=== PATIENT | male | born 2000 | race Caucasian/White ===

== ENCOUNTER 2022-01-18 11:41 | Emergency (ER) | payer OTHER, MEDICAID, SELFPAY ==
[2022-01-18] VITALS (15 sets, daily range): BP systolic 120–141; BP diastolic 70–83; PULSE 51–73; RESP 11–18; TEMP 36.6; O2SAT 94–100
--- NOTE | ~2022-01-18 | XR_ITS ---
EXAMINATION: XR chest 2V 01/18/2022 12:18 INDICATION: Chest pain PROCEDURE: 2 view chest COMPARISON: No prior studies for comparison. FINDINGS: The lungs are clear. The cardiomediastinal silhouette is within normal limits. There are no pleural effusions. There is no pneumothorax suspected. IMPRESSION: 1: NO ACUTE CARDIOPULMONARY DISEASE. Reviewed, dictated and finalized at location A.
--- NOTE | 2022-01-18 11:45 | ECG_ITS ---
Measurements Intervals [place] Rate: 70 P: 17 WI: 180 QRS: 45 QRSD: 112 T: 5 QT: 361 QTc: 390 Interpretive Statements SINUS RHYTHM MODERATE INTRAVENTRICULAR CONDUCTION DELAY [110+ ms QRS DURATION] ST ELEVATION, PROBABLY EARLY REPOLARIZATION [ST ELEVATION WITH NORMALLY INFLECTED T WAVE] BORDERLINE ECG NO PREVIOUS ECG AVAILABLE FOR COMPARISON Electronically Signed On 01-18-2022 16:11:05 CDT by Horace Barnett M.D.
--- NOTE | 2022-01-18 12:04 | ED.CHESTPAIN ---
HPI - Chest Pain General Chief Complaint: Chest Pain Stated Complaint: chest pain 03/06 substernal Time Seen by Provider: 01/18/22 11:50 History of Present Illness HPI narrative: 21-year-old male history of GERD and evaluation of midsternal chest pain. Patient states the pain has been present intermittently for over a year, and is worse with heavy activity. Patient states that he was at work today when he began to experience severe chest discomfort. Patient states the pain is worse when he is active, breathing deeply, and pushing on his chest. Patient denies any shortness of breath, difficulty breathing, nausea or vomiting, or fever. Denies any injury or trauma. Related Data Allergies Allergy/AdvReac Type Severity Reaction Status Date / Time No Known Allergies Allergy Verified 01/18/22 11:42 Review of Systems Review of Systems: CONSTITUTIONAL: Denies fever, chills, or sweats. EYES: Denies visual changes, redness, or discharge. ENT: Denies rhinorrhea, congestion, sore throat, or otalgia. CARDIOVASCULAR: Reports chest pain RESPIRATORY: Denies cough or dyspnea. GASTROINTESTINAL: Denies abdominal pain, nausea, vomiting, or diarrhea. GENITOURINARY: Denies dysuria or hematuria. SKIN: Denies rash or itching. MUSCULOSKELETAL: Denies back pain, joint pain, or myalgia. NEUROLOGIC: Denies headache, numbness, dizziness, or weakness. PSYCHIATRIC: Denies anxiety or depression. Exam Narrative: GENERAL: Well-appearing, well-nourished, no physical limitations, and in mild acute distress. HEAD: Normocephalic, atraumatic. EYES: Conjunctivae normal, PERRLA and EOMI. CHEST: Clear to auscultation. No respiratory distress. No wheezes rales or rhonchi. Midsternal tenderness when pressure is applied HEART: Regular rate and rhythm. No murmur heard. Normal peripheral pulses. ABDOMEN: Soft, nontender, nondistended, normal active bowel sounds. EXTREMITIES: Normal range of motion. No edema. No clubbing or cyanosis SKIN: Warm, dry, no rash. No noted wounds NEURO: No focal deficits. Alert and oriented x3. MAEW. CN's II-XI intact bilaterally, normal gait PSYCH: Cooperative. Normal mood and affect. Course Vital Signs Vital signs: Vital Signs Temperature 36.6 C 01/18/22 11:37 Pulse Rate 73 01/18/22 11:37 Respiratory Rate 14 01/18/22 11:37 Blood Pressure 141/79 H 01/18/22 11:37 Pulse Oximetry 100 01/18/22 11:37 Oxygen Delivery Room Air 01/18/22 11:37 Temperature 36.6 C 01/18/22 11:37 Pulse Rate 73 01/18/22 11:37 Respiratory Rate 14 01/18/22 11:37 Blood Pressure 141/79 H 01/18/22 11:37 Pulse Oximetry 100 01/18/22 11:37 Oxygen Delivery Room Air 01/18/22 11:37 MDM - Chest Pain MDM Narrative Medical decision making narrative: 21-year-old male with a history of costochondritis presented to the emergency room complaints of midsternal chest pain. No evidence of volume overload. EKG shows no signs of active ischemia. Single troponin was negative. Presentation is not consistent with an acute PE. Chest x-ray shows no evidence of a pneumo or pneumonia. Heart score is a 0 will discharge patient home with steroids and follow-up with primary care. Lab Data Result diagrams: 01/18/22 12:09 01/18/22 12:08 Labs: Lab Results 01/18/22 01/18/22 01/18/22 Range/Units 12:08 12:08 12:09 WBC 7.2 (4.5-10.0) K/mm3 RBC 4.87 (4.6-6.20) M/mm3 Hgb 14.5 (14.0-18.0) g/dL Hct 42.6 (42.0-52.0) % MCV 87.5 (80-100) fl MCH 29.8 (26-34) pg MCHC 34.0 (32-36) g/dl RDW 12.5 (11.5-14.5) % Plt Count 323 (150-375) k/mm3 MPV 9.0 (7.4-10.4) fl Immature Gran % (Auto) 0.3 (0-0.5) % Neut % (Auto) 70.5 (45.5-73.1) % Lymph % (Auto) 21.3 (18.3-44.2) % [place] % (Auto) 7.2 (2.6-8.5) % Eos % (Auto) 0.4 (0-4.4) % Baso % (Auto) 0.3 (0.2-1.2) % Lymph # (Auto) 1.54 (0.9-3.2) K/mm3 [place] # (Auto) 0.5 (0.1-0.6) K/mm3 Eos # (Auto)
[2022-01-18] MEDS: KETOROLAC 30 MG/ML VIAL (*BKC) IV PUSH (12:30)
[2022-01-18 12:53] LABS: Basophils Percent Auto 0.3 % (0.2-1.2); Eosinophils Percent Auto 0.4 % (0-4.4); Hematocrit 42.6 % (42.0-52.0); Hemoglobin 14.5 g/dL (14.0-18.0); Immature Granulocyte Absolute 0.02 K/mm3 (0.00-0.031); Immature Granulocyte Percent A 0.3 % (0-0.5); Lymphocytes Absolute Auto 1.54 K/mm3 (0.9-3.2); Lymphocytes Percent Auto 21.3 % (18.3-44.2); Mean Corpuscular Hemoglobin 29.8 pg (26-34); Mean Corpuscular Volume 87.5 fl (80-100); Monocytes Absolute Auto 0.5 K/mm3 (0.1-0.6); Monocytes Percent Auto 7.2 % (2.6-8.5); Neutrophils Absolute Auto 5.1 K/mm3 (1.3-6.7); Neutrophils Percent Auto 70.5 % (45.5-73.1); Platelet Count Result 323 k/mm3 (150-375); Red Blood Count 4.87 M/mm3 (4.6-6.20); Red Cell Distribution Width 12.5 % (11.5-14.5); White Blood Count 7.2 K/mm3 (4.5-10.0)
[2022-01-18 13:04] LABS: INR 1.1; Partial Thromboplastin Time 30.3 SECONDS (22.3-36.8); Prothrombin Time 14.2 Seconds (11.1-14.7)
[2022-01-18 13:05] LABS: Alanine Aminotransferase 49 U/L (6-50); Albumin Level 4.8 g/dL (3.5-5.1); Alkaline Phosphatase 79 U/L (38-126); Anion Gap 12 mmol/L (8-16); Aspartate Amino Transferase 41 U/L (17-59); Bilirubin,Total 0.9 mg/dL (0.2-1.3); Blood Urea Nitrogen 12 mg/dL (9-20); Calcium 9.4 mg/dL (8.4-10.2); Carbon Dioxide 26 mmol/L (22-30); Chloride 101 mmol/L (98-107); Estimated CRCL calculation 126 ml/min; Estimated Glomerular Filt Rate > 60; Glucose 93 mg/dL (65-110); Lipase 75 U/L (23-300); Potassium 3.2 mmol/L (3.4-5.0); Sodium 139 mmol/L (137-145)
[2022-01-18 13:14] LABS: Troponin I < 0.012 ng/mL (0.000-0.034)
== END 2022-01-18 14:06 | disposition home or self-care (01) ==
PROVIDERS: Preventive Medicine Aerospace Medicine; Emergency Provider Nurse Practitioner Family
DX: M94.0 Chondrocostal junction syndrome [Tietze] (principal); R94.31 Abnormal electrocardiogram [ECG] [EKG]
CPT/HCPCS: 36415; 71046; 80053; 83690; 84484; 85025; 85610; 85730; 93005; 96374; 96375; 99284; J1100; J1885

== ENCOUNTER 2023-03-04 19:10 | Emergency (ER) | payer OTHER, MEDICAID, SELFPAY ==
[2023-03-04] VITALS (8 sets, daily range): BP systolic 127–139; BP diastolic 80–87; PULSE 73–98; RESP 12–20; TEMP 37.3; O2SAT 100
--- NOTE | ~2023-03-04 | CT_ITS ---
EXAMINATION: CTA chest PE protocol DATE: 03/04/2023 20:31 INDICATION: chest pain TECHNIQUE: Computed tomography angiography (CTA) of the chest was performed with 200 mL Omnipaque-350 intravenous contrast timed to evaluate the pulmonary arteries. Repeat imaging acquired due to subopt imal arterial enhancement. Coronal maximum intensity projection 3D-reconstructions were created by lashell rmaey technologist. The dose-length product (DLP) was 614.02 mGy-cm. Automated exposure control and itera tive reconstruction technique were employed. COMPARISON: None. FINDINGS: Lung parenchyma and airways: Mild motion artifact. No acute opacity. Pleura: Unremarkable. Thoracic inlet, axillae and chest wall: Bilateral symmetric gynecomastia. Thoracic aorta: Normal. Mediastinum: Normal. Heart and pericardium: Normal. Coronary artery calcifications: Absent. Upper abdomen: No significant finding. Bones: No acute osseous finding. Pulmonary arteries: Study quality: Suboptimal arterial enhancement which persisted in repeated attemp ts. Subsegmental arteries poorly visualized due to cardiac/respiratory motion and beam hardening. Non occlusive segmental or occlusive/nonocclusive subsegmental emboli could be missed. No central or occl usive segmental pulmonary emboli detected. IMPRESSION: Mildly limited study as detailed above. No CT evidence of central or occlusive segmental acute pulmon bertin embolus. No acute intrathoracic process detected. Bilateral symmetric gynecomastia. Reviewed, dictated and finalized at location K. IMPRESSION: Mildly limited study as detailed above. No CT evidence of central or occlusive segmental acute pulmonary embolus. No acute intrathoracic process detected. Bilateral symmetric gynecomastia.
--- NOTE | ~2023-03-04 | XR_ITS ---
EXAMINATION: XR chest 1V portable Exam Date/Time: 03/04/2023 19:25 CDT HISTORY: chest wall pain INTERMITTENTLY X 3 YEARS Comparison: 01/18/2022. RESULT: Lines, tubes, and devices: None. Lungs and pleura: Clear. Cardiomediastinal silhouette: Stable. Other: No acute osseous or upper abdominal finding. IMPRESSION: No acute cardiopulmonary process. Reviewed, dictated and finalized at location K.
--- NOTE | 2023-03-04 19:10 | ECG_ITS ---
Measurements Intervals [place] Rate: 95 P: 45 VA: 200 QRS: 62 QRSD: 107 T: 11 QT: 318 QTc: 401 Interpretive Statements SINUS RHYTHM ST ELEVATION CONSISTENT WITH INJURY, PERICARDITIS, OR EARLY REPOLARIZATION [ST ELEVATION W/O NORMALLY INFLECTED T WAVE] ABNORMAL ECG COMPARED TO ECG 01/18/2022 11:57:18 NO SIGNIFICANT CHANGES Electronically Signed On 03-05-2023 9:28:54 CDT by Donnell Pena M.D.
[2023-03-04] MEDS: KETOROLAC 15 MG/ML VIAL (*BKC) IV PUSH (19:23)
--- NOTE | 2023-03-04 19:23 | ED.GENADULT ---
HPI - General Adult General Chief complaint: Chest Pain Stated complaint: cp History of Present Illness HPI narrative: 22-year-old male with no significant past medical history presented to the emergency department for evaluation of chest pain that he describes as substernal that started approximately 530. Patient denies any recent coughs colds or fevers. Patient states he has no prior cardiac history but does have a potential history of costochondritis. Patient denies any falls or injuries. Related Data Allergies Allergy/AdvReac Type Severity Reaction Status Date / Time No Known Allergies Allergy Verified 01/18/22 11:42 Review of Systems Review of Systems: All systems reviewed & are unremarkable except as noted in HPI and below Exam Narrative: APPEARANCE: Well appearing, no pain, no distress, well-nourished. HEAD: normocephalic, atraumatic. EYES: PERRLA/EOMI, conjunctivae clear. NOSE: Normal no drainage NECK: Supple. No adenopathy, no masses. RESPIRATORY: Airway patent, respirations nonlabored. Clear to auscultation bilaterally, no rales, rhonchi, wheezing. CARDIOVASCULAR: Regular rate and rhythm without murmurs rubs or gallops. ABDOMINAL: Soft, nontender, nondistended, normal bowel sounds MUSCULOSKELETAL: Reproducible chest wall tenderness to palpation NEURO: Alert. Cranial nerves II through XII intact. Good gait. Good coordination SKIN: Warm, dry. Normal Color Course Course Emergency Course: 22-year-old male presented to the emergency department for evaluation of reproducible sternal chest pain. Patient reports he does have a history of costochondritis. EKG showed early repole. Patient had negative serial troponins. Patient had no elevated leukocytosis and a stable hemoglobin. No significant abnormalities on his CMP. CTA was negative for pulm embolism. Patient does feel improved with treatment. Patient was encouraged to have close follow-up with his primary care physician for additional outpatient cardiac testing. All questions concerns were addressed. Vital Signs Vital signs: Vital Signs Temperature 99.1 F 03/04/23 18:57 Pulse Rate 98 03/04/23 18:57 Respiratory Rate 17 03/04/23 18:57 Blood Pressure 139/87 03/04/23 18:57 Pulse Oximetry 100 03/04/23 18:57 Oxygen Delivery Room Air 03/04/23 18:57 Temperature 99.1 F 03/04/23 18:57 Pulse Rate 77 03/04/23 23:31 Respiratory Rate 12 03/04/23 23:31 Blood Pressure 137/82 03/04/23 23:31 Pulse Oximetry 100 03/04/23 23:31 Oxygen Delivery Room Air 03/04/23 18:57 Medical Decision Making Differential Diagnosis Differential Diagnosis: Pneumonia, pneumothorax, pleurisy, costochondritis, pulmonary embolism, ACS Vital Signs Vital Signs: Vital Signs Temperature 99.1 F 03/04/23 18:57 Pulse Rate 98 03/04/23 18:57 Respiratory Rate 17 03/04/23 18:57 Blood Pressure 139/87 03/04/23 18:57 Pulse Oximetry 100 03/04/23 18:57 Oxygen Delivery Room Air 03/04/23 18:57 Temperature 99.1 F 03/04/23 18:57 Pulse Rate 77 03/04/23 23:31 Respiratory Rate 12 03/04/23 23:31 Blood Pressure 137/82 03/04/23 23:31 Pulse Oximetry 100 03/04/23 23:31 Oxygen Delivery Room Air 03/04/23 18:57 Lab Data Lab results reviewed: Yes I reviewed the patient's lab results. 03/04/23 19:23 03/04/23 19:23 Labs: Lab Results 03/04/23 03/04/23 03/04/23 Range/Units 19:23 19:23 19:46 WBC 5.9 (4.5-10.0) K/mm3 RBC 4.70 (4.6-6.20) M/mm3 Hgb 14.0 (14.0-18.0) g/dL Hct 41.8 L (42.0-52.0) % MCV 88.9 (80-100) fl MCH 29.8 (26-34) pg MCHC 33.5 (32-36) g/dl RDW 12.1 (11.5-14.5) % Plt Count 262 (150-375) k/mm3 MPV 8.8 (7.4-10.4) fl Immature Gran % (Auto) 0.2 (0-0.5) % Neut % (Auto) 69.9 (45.5-73.1) % Lymph % (Auto) 19.9 (18.3-44.2) % [place] % (Auto) 9.4 H (2.6-8.5) % Eos % (Auto) 0.3 (0-4.4) % Baso % (Auto) 0.3
[2023-03-04 19:28] LABS: Basophils Percent Auto 0.3 % (0.2-1.2); Eosinophils Percent Auto 0.3 % (0-4.4); Hematocrit 41.8 % (42.0-52.0); Immature Granulocyte Absolute 0.01 K/mm3 (0.00-0.031); Immature Granulocyte Percent A 0.2 % (0-0.5); Lymphocytes Absolute Auto 1.17 K/mm3 (0.9-3.2); Lymphocytes Percent Auto 19.9 % (18.3-44.2); Mean Corpuscular HGB Conc 33.5 g/dl (32-36); Mean Corpuscular Hemoglobin 29.8 pg (26-34); Mean Corpuscular Volume 88.9 fl (80-100); Mean Platelet Volume 8.8 fl (7.4-10.4); Monocytes Absolute Auto 0.6 K/mm3 (0.1-0.6); Monocytes Percent Auto 9.4 % (2.6-8.5); Neutrophils Absolute Auto 4.1 K/mm3 (1.3-6.7); Neutrophils Percent Auto 69.9 % (45.5-73.1); Platelet Count Result 262 k/mm3 (150-375); Red Cell Distribution Width 12.1 % (11.5-14.5); White Blood Count 5.9 K/mm3 (4.5-10.0)
[2023-03-04 19:41] LABS: Alanine Aminotransferase 20 U/L (6-50); Albumin Level 4.6 g/dL (3.5-5.1); Alkaline Phosphatase 62 U/L (38-126); Anion Gap 10 mmol/L (8-16); Aspartate Amino Transferase 24 U/L (17-59); Bilirubin,Total 1.3 mg/dL (0.2-1.3); Blood Urea Nitrogen 12 mg/dL (9-20); Carbon Dioxide 23 mmol/L (22-30); Chloride 107 mmol/L (98-107); Estimated Glomerular Filt Rate > 60; Glucose 93 mg/dL (65-110); INR 1.2; Potassium 3.5 mmol/L (3.4-5.0); Prothrombin Time 15.3 Seconds (11.1-14.7); Sodium 140 mmol/L (137-145)
[2023-03-04 19:43] LABS: Partial Thromboplastin Time 30.8 SECONDS (22.3-36.8)
[2023-03-04 19:52] LABS: Appearance Urine Clear (Clear); Bilirubin Urine Negative (Negative); Blood Urine Negative (Negative); Color Urine Yellow (Yellow); Glucose Urine UA Negative (Negative); Ketones Urine Negative (Negative); Leukocyte Esterase Ur Negative LEU/UL (Negative); Nitrate Urine Negative (Negative); Protein Urine Negative (Negative); Specific Grav Ur 1.015 (1.001-1.035); Urobilinogen Urine 0.2 mg/dL (<2.0); pH Urine 7.5 (5.0-9.0)
[2023-03-04 19:53] LABS: Add Urine Microscopic? NO
[2023-03-04 19:55] LABS: Troponin I < 0.012 ng/mL (0.000-0.034)
[2023-03-04 20:06] LABS: Amphetamine Screen Urine Negative (Negative); Barbiturate Screen Urine Negative (Negative); Benzodiazepines Screen Urine Negative (Negative); Cannabinoid Screen Urine Negative (Negative); Cocaine Screen Urine Negative (Negative); Methadone Screen Urine Negative (Negative); Opiate Screen Urine Negative (Negative); Phencyclidine Screen Urine Negative (Negative)
[2023-03-04 20:10] LABS: Lactic Acid Reflex 1.6 mmol/L (0.7-2.0)
[2023-03-04] MEDS: HYDROmorphone HCL INJ (*CRX) 1 MG/ML SYR 0.5 MG IV PUSH (22:27)
[2023-03-04 23:10] LABS: Troponin I < 0.012 ng/mL (0.000-0.034)
--- NOTE | 2023-03-04 23:16 | PC.NURSE ---
Report given to MOHAMUD Lozano, no questions/concerns. Care of pt transferred.
== END 2023-03-05 | disposition home or self-care (01) ==
PROVIDERS: Emergency Provider Emergency Medicine; PCP Internal Medicine
DX: M94.0 Chondrocostal junction syndrome [Tietze] (principal); R07.89 Other chest pain
CPT/HCPCS: 36415; 71045; 71275; 80053; 80307; 81003; 83605; 84484; 85025; 85610; 85730; 93005; 96374; 96375; 99284; J1170; J1885; Q9967

== ENCOUNTER 2023-07-04 21:29 | Emergency (ER) | payer OTHER, SELFPAY ==
--- NOTE | ~2023-07-04 | XR_ITS ---
EXAMINATION: XR chest 2V DATE: 07/04/2023 22:04 INDICATION: Chest pain. TECHNIQUE: Frontal and lateral views of the chest were obtained. COMPARISON: Chest view 03/04/2023, chest CT 03/04/2023 FINDINGS: There is no pneumonia, pleural effusion, or pneumothorax. The heart size is normal. IMPRESSION: 1. No acute cardiopulmonary disease. Reviewed, dictated and finalized at location E. [employer]
[2023-07-04 21:30] VITALS: BP 127/85; PULSE 77; RESP 15; TEMP 36.3; O2SAT 100
--- NOTE | 2023-07-04 21:30 | ECG_ITS ---
Measurements Intervals [place] Rate: 77 P: 32 MD: 156 QRS: 65 QRSD: 103 T: 35 QT: 330 QTc: 376 Interpretive Statements SINUS RHYTHM WITH SINUS ARRHYTHMIA ST ELEVATION, PROBABLY EARLY REPOLARIZATION [ST ELEVATION WITH NORMALLY INFLECTED T WAVE] COMPARED TO ECG 03/04/2023 19:12:37 SINUS ARRHYTHMIA NOW PRESENT Electronically Signed On 07-05-2023 11:14:30 [employer]KER by Maximiliano Jose M.D.
[2023-07-04 21:51] LABS: Basophils Percent Auto 0.4 % (0.2-1.2); Eosinophils Percent Auto 0.3 % (0-4.4); Hemoglobin 14.8 g/dL (14.0-18.0); Immature Granulocyte Absolute 0.01 K/mm3 (0.00-0.031); Immature Granulocyte Percent A 0.1 % (0-0.5); Lymphocytes Percent Auto 16.6 % (18.3-44.2); Mean Corpuscular HGB Conc 33.6 g/dl (32-36); Mean Corpuscular Hemoglobin 29.7 pg (26-34); Mean Corpuscular Volume 88.2 fl (80-100); Mean Platelet Volume 8.8 fl (7.4-10.4); Monocytes Absolute Auto 0.4 K/mm3 (0.1-0.6); Monocytes Percent Auto 5.5 % (2.6-8.5); Neutrophils Absolute Auto 5.6 K/mm3 (1.3-6.7); Neutrophils Percent Auto 77.1 % (45.5-73.1); Platelet Count Result 285 k/mm3 (150-375); Red Blood Count 4.99 M/mm3 (4.6-6.20); White Blood Count 7.2 K/mm3 (4.5-10.0)
[2023-07-04 22:00] LABS: INR 1.1; Prothrombin Time 14.6 Seconds (11.1-14.7)
[2023-07-04 22:02] LABS: Partial Thromboplastin Time 28.5 SECONDS (22.3-36.8)
[2023-07-04 22:30] LABS: Alanine Aminotransferase 26 U/L (6-50); Albumin Level 4.6 g/dL (3.5-5.1); Alkaline Phosphatase 71 U/L (38-126); Anion Gap 9 mmol/L (8-16); Aspartate Amino Transferase 29 U/L (17-59); Bilirubin,Total 1.8 mg/dL (0.2-1.3); Blood Urea Nitrogen 10 mg/dL (9-20); Calcium 9.8 mg/dL (8.4-10.2); Carbon Dioxide 27 mmol/L (22-30); Chloride 104 mmol/L (98-107); Estimated CRCL calculation 124 ml/min; Estimated Glomerular Filt Rate > 60; Glucose 97 mg/dL (65-110); Lipase 68 U/L (23-300); Potassium 3.5 mmol/L (3.4-5.0); Sodium 140 mmol/L (137-145)
[2023-07-04 22:41] LABS: Troponin I < 0.012 ng/mL (0.000-0.034)
[2023-07-04 23:13] VITALS: BP 111/83; PULSE 61; RESP 12; TEMP 36.8; O2SAT 100
--- NOTE | 2023-07-04 23:31 | PC.NURSE ---
per zhen larsen, ok to not give aspirin
[2023-07-05 01:25] LABS: Troponin I < 0.012 ng/mL (0.000-0.034)
--- NOTE | 2023-07-05 01:30 | ED.CHESTPAIN ---
HPI - Chest Pain General Chief Complaint: Chest Pain Stated Complaint: chest pain with previous diagnosis Time Seen by Provider: 07/04/23 23:22 Source: patient and old records reviewed Mode of arrival: ambulatory Limitations: no limitations History of Present Illness HPI narrative: Patient is a 23-year-old male who presents the ED with report of chest pain. Patient reports he has been dealing with intermittent chest pain for the last 4 years. States pain is midsternal and radiates across his stress bilaterally. States pain flared up around 8:30 p.m. 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 Pain worse with movement now. Patient has not tried taking anything for pain, but states ibuprofen has helped in the past. Reports previous dx of costochondritis. He denies any difficulty breathing. Denies feeling short of breath. Denies abdominal pain, nausea, vomiting, dizziness, lightheadedness, lower extremity pain or swelling. Patient has been seen in our ED for similar CP several times with reassuring w/u's. Related Data Allergies Allergy/AdvReac Type Severity Reaction Status Date / Time No Known Allergies Allergy Verified 01/18/22 11:42 Review of Systems Review of Systems: CONSTITUTIONAL: Denies fever, chills, or sweats. CARDIOVASCULAR: See HPI. RESPIRATORY: Denies cough or dyspnea. GASTROINTESTINAL: Denies abdominal pain, nausea, vomiting. MUSCULOSKELETAL: Denies back pain. NEUROLOGIC: Denies headache, dizziness, numbness, or weakness. All systems reviewed & are unremarkable except as noted in HPI and below Exam Narrative: GENERAL: Well appearing, well-nourished, non-toxic, in no acute distress. HEAD: Normocephalic, atraumatic. RESPIRATORY: Airway patent, respirations nonlabored. Clear to auscultation bilaterally, no rales, rhonchi, wheezing. CARDIOVASCULAR: Regular rate and rhythm without murmurs, rubs, or gallops. ABDOMINAL: Soft, nontender, nondistended. Normoactive BS. MUSCULOSKELETAL: Moves all extremities. No gross deformities. Diffuse tenderness to palpation anterior chest, reproducing pain. Patient reporting discomfort with any movement on ED stretcher. SKIN: Warm, dry, normal color. NEURO: A&O X3. Speech clear. Cranial nerves II-XII grossly intact. Steady gait. No ataxic movements. PSYCHIATRIC: Appropriate mood and affect. Normal interaction. Course Vital Signs Vital signs: Vital Signs Temperature 97.4 F L 07/04/23 21:30 Pulse Rate 77 07/04/23 21:30 Respiratory Rate 15 07/04/23 21:30 Blood Pressure 127/85 07/04/23 21:30 Pulse Oximetry 100 07/04/23 21:30 Oxygen Delivery Room Air 07/04/23 21:30 Temperature 98.2 F 07/04/23 23:13 Pulse Rate 64 07/05/23 02:58 Respiratory Rate 15 07/05/23 02:58 Blood Pressure 110/83 07/05/23 02:58 Pulse Oximetry 100 07/05/23 02:58 Oxygen Delivery Room Air 07/05/23 01:40 MDM - Chest Pain MDM Narrative Medical decision making narrative: Patient present acute on chronic episode of anterior/midsternal chest pain, pain worse with movement. Vital signs stable. Patient with previous diagnosis of costochondritis. Seems atypical, low suspicion for ACS. Pain present with movements, reproducible with palpation on exam, seems more musculoskeletal. EKG w/ early repol. HEART score 1 based on EKG. Troponin negative X2. CXR clear. PERC negative. No evidence of DVT on exam. Remainder of basic laboratory studies unremarkable. Patient feeling better with supportive therapy. Will be discharged. Advised to continue Tylenol ibuprofen as needed for discomfort, discussed likelihood of musculoskeletal pain. Will also prescribe lidocaine patches. Patient in agreement with plan. Discussed follow-up with primary care doctor. Given return precautions. Discharged in stable condition. Medical Records Data Attestation: I reviewed the patient's medical records. Lab Data Attestation: I reviewed the patient's lab results.
[2023-07-05 01:40] VITALS: O2SAT 98
--- NOTE | 2023-07-05 01:42 | PC.NURSE ---
renato larsen to place a second toradol 30mg order and give a total of 60mg toradol im. Order entered.
[2023-07-05] MEDS: KETOROLAC 30 MG/ML VIAL (*BKC) IV PUSH (01:45)
[2023-07-05] MEDS: ACETAMINOPHEN 500 MG TABLET 1000 MG PO (01:45)
[2023-07-05] MEDS: KETOROLAC 30 MG/ML VIAL (*BKC) IM (01:46)
[2023-07-05 02:58] VITALS: BP 110/83; PULSE 64; RESP 15; O2SAT 100
--- NOTE | 2023-07-05 09:48 | ECG_ITS ---
Measurements Intervals [place] Rate: 53 P: 32 FL: 170 QRS: 63 QRSD: 106 T: 38 QT: 386 QTc: 365 Interpretive Statements SINUS BRADYCARDIA COMPARED TO ECG 07/04/2023 21:38:10 SINUS BRADYCARDIA NOW PRESENT Electronically Signed On 07-05-2023 11:23:12 [employer]ESS [employer]ELOPER by Maximiliano Jose M.D.
== END 2023-07-05 03:00 | disposition home or self-care (01) ==
PROVIDERS: Emergency Medicine; Emergency Provider Physician Assistant; PCP Internal Medicine
DX: R07.89 Other chest pain (principal); R00.1 Bradycardia, unspecified
CPT/HCPCS: 36415; 71046; 80053; 83690; 84484; 85025; 85610; 85730; 93005; 96372; 96374; 99284; A9270; J1885